=== PATIENT | female | born 1980 | race Caucasian/White ===

== ENCOUNTER 2017-03-23 10:07 | Day surgery (SDC) | payer SELFPAY ==
[~2017-03-23] VITALS: Ht 170.2 cm; Wt 61.7 kg
[2017-03-23] MEDS ORDERED: TESTOSTERONE PELLET INJ (11:05)
[2017-03-23] MEDS ORDERED: ARMOUR THYROID30 MG ORAL (11:05)
[2017-03-23 11:06] VITALS: BP 102/61
[2017-03-23] MEDS ORDERED: Lidocaine 2% 20mg/ml/Epi 0.005mg/ml 20ml vial ONE (12:05)
[2017-03-23 13:45] VITALS: BP 117/72
--- NOTE | 2017-03-23 13:46 | Pre-Procedure Note/Attestation ---
Pre-Procedure Note/Attestation Complete Prior to Procedure Planned Procedure: bilateral Procedure Narrative: Buccal fat excision Indications for Procedure Pre-Operative Diagnosis: Excess buccal fat Attestation I attest that I discussed the nature of the procedure; its benefits; risks and complications; and alternatives (and the risks and benefits of such alternatives ), prior to the procedure, with the patient (or the patient's legal patient registration representative). I attest that, if there was a reasonable possibility of needing a blood transfusion, the patient (or the patient's legal patient registration representative) was given the [facility] standardized written summary, pursuant to the [place] [place] Blood Safety Act ([place] Health and Safety Code # 1645, as amended). I attest that I re-evaluated the patient just prior to the surgery and that there has been no change in the patient's H&P, except as documented below: LICHA JOHANSEN M.D. Mar 23, 2017 13:46
--- NOTE | 2017-03-23 13:48 | Operative Note - PDOC ---
Operative Note Operative Note Date of Operation/Procedure: Mar 23, 2017 Chief Complaint: Excess buccal fat Pre-op Diagnosis: Excess buccal fat Procedure: Bilateral buccal fat excision Post-op Diagnosis: Same Post-op Diagnosis: same as pre-op Surgeon: Gomez Sales Leader: None Additional Surgeons: None Anesthesia: local Specimen: none Complications: none Condition: stable Fluids: None Estimated Blood Loss: none Drains: none Implant(s) used?: No Indications for Procedure Excess buccal fat Description of Procedure Buccal fat excision LICHA JOHANSEN M.D. Mar 23, 2017 13:48
--- NOTE | 2017-03-24 01:45 | Operative Note - Dictated ---
DATE OF OPERATION: 03/23/2017 PREOPERATIVE DIAGNOSIS: Excess buccal fat. POSTOPERATIVE DIAGNOSIS: Excess buccal fat. PROCEDURE: Buccal fat excision, bilateral. SURGEON: Ayaan Dyer M.D. DUMP WORKER: None. ANESTHESIA: Local by surgeon. PROCEDURE IN DETAIL: After local anesthetic infiltration into the bilateral buccal mucosa at the bite line just inferior to Stensen's duct, the patient was taken to the operating room and sterilely prepped and draped. A 6 mm incision was made with a #15 blade and bleeding gently cauterized and then blunt spreading dissection was done through buccinator muscle. The buccal fat pad was seen and gently teased away from surrounding tissues. Approximately, 3 or 4 mL of buccal fat was excised. The same procedure was done on the contralateral side also without difficulty. Buccal fat was passed off the field and the incisions were closed using 5-0 chromic suture material bilaterally. Irrigation with antibiotic-containing solution was done prior to closure. The patient was taken to recovery in excellent condition postoperatively. Ayaan Dyer DR: KERI JOB#: [id number] CC:
== END 2017-03-23 14:15 | disposition home or self-care (01) ==
LOC: SUR 10:07
DX: E65 Localized adiposity (principal); M26.89 Other dentofacial anomalies; E88.1 Lipodystrophy, not elsewhere classified
CPT/HCPCS: 81025